=== PATIENT | male | born 1985 | race Caucasian/White ===

== ENCOUNTER 2017-08-17 14:14 | Emergency (ER) | payer BC | END 2017-08-17 14:46 | disposition left against medical advice (07) | LOC: MW.ED 14:14 | DX: Z53.21 Procedure and treatment not carried out due to patient leaving prior to being seen by health care provider (principal) ==

== ENCOUNTER 2017-08-19 00:31 | Emergency (ER) | payer BC ==
--- NOTE | 2017-08-19 00:59 | EDM.PDOC ---
ED HPI GENERAL MEDICAL PROBLEM - General Chief Complaint: General Stated Complaint: PANIC ATTACK Time Seen by Provider: 08/19/17 00:45 - History of Present Illness INITIAL COMMENTS - FREE TEXT/NARRATIVE: HISTORY AND PHYSICAL: History of present illness: The patient is a healthy 32-year-old male who presents with a history of being given a diagnosis of generalized anxiety 1-2 years ago and has had several panic attacks this week secondary to stressors at work and in his family life. The patient says that he tries to eat healthfully he works out and he is very conscious of his body and lately he has had issues dealing with these stressors which she says are in his life on a regular basis. In the past he was able to deal with them a little bit better and he is unsure why this is happening this week but he is having difficulty sleeping and feels like his thoughts and heart are racing. Currently he is feeling better and he has no feelings of depression and actually wants a bridge in order to get some rest until he can get home to [place], where he lives and where he wants to start to get some counseling. Patient denies suicidal ideation and says he wants to rest as he has to finish his job here for go home tomorrow. Patient does drink caffeinated products but not excessive amount and does not use drugs. Review of systems: As per history of present illness and below otherwise all systems reviewed and negative. Past medical history: As per history of present illness and as reviewed below otherwise noncontributory. Surgical history: As per history of present illness and as reviewed below otherwise noncontributory. Social history: No reported history of drug or alcohol abuse. Family history: As per history of present illness and as reviewed below otherwise noncontributory. Physical exam: General: Well-developed well-nourished man who is nontoxic and does exhibit some anxiety when we are talking about certain things in the room but is overall cooperative and pleasant. Vital signs have been noted by me HEENT: Atraumatic, normocephalic, negative for conjunctival pallor or scleral icterus, mucous membranes moist, throat clear, neck supple, nontender, trachea midline. Lungs: Clear to auscultation, breath sounds equal bilaterally, chest nontender. Heart: S1S2, regular rate and rhythm no overt murmurs Abdomen: Soft, nondistended, nontender. Negative for masses or hepatosplenomegaly. NABS Pelvis: Stable nontender. Genitourinary: Deferred. Rectal: Deferred. Extremities: Atraumatic, negative for cords or calf pain. Neurovascular unremarkable. Neuro: Awake, alert, oriented. Cranial nerves II through XII unremarkable. Cerebellum unremarkable. Motor and sensory unremarkable throughout. Exam nonfocal. Diagnostics: [] Therapeutics: [] I discussed with the patient length different [id number] medications he can use to help him with sleep such as melatonin and also to reduce screen time before trying to rest. I will give him a small amount of Ativan from [employer] to help bridge him until he can go and seek counseling back at home. He was offered resources here but says he is going back to [place] tomorrow where he lives and he would rather establish definitive treatment there. Advised him on reasons to return Impression: Anxiety with history of same Definitive disposition and diagnosis as appropriate pending reevaluation and review of above. - Related Data Allergies Allergy/AdvReac Type Severity Reaction Status Date / Time No Known Allergies Allergy Verified 08/19/17 00:36 Home Meds: Home Meds . [No Known Home Meds] 08/19/17 [History] Past Medical History - Past Health History Medical/Surgical History: Denies Medical/Surgical History Psychiatric History: Reports: Anxiety Social & Family History - Family History Family Medical History: Noncontributory - Tobacco Use Smoking Status *Q: Never Smoker - Caffeine Use Caffeine Use: Reports: None - Recreational Drug Use Recreational Drug Use: Yes Drug Use in Last 12 Months: Yes Recreational Drug Type: Reports: Marijuana/Hashish ED ROS GENERAL - Review of Systems Review Of Systems: ROS reveals no pertinent complaints other than HPI. ED EXAM, GENERAL - Physical Exam Exam: See Below (See dictation) Course - Vital Signs Last Recorded V/S: Last Vital Signs Temp 36.4 C 08/19/17 00:31 Pulse 94 08/19/17 00:31 Resp 18 08/19/17 00:31 BP 147/86 H 08/19/17 00:31 Pulse Ox 100 08/19/17 00:31 Departure - Departure Time of Disposition: 00:58 Disposition: Home, Self-Care 01 Condition: Good Clinical Impression: Anxiety - Discharge Information Referrals: PCP,None [Primary Care Provider] - Additional Instructions: The following information is given to patients seen in the emergency department who are being discharged to home. This information is to outline your options for follow-up care. We provide all patients seen in our emergency department with a follow-up referral. The need for follow-up, as well as the timing and circumstances, are variable depending upon the specifics of your emergency department visit. If you don't have a primary care physician on staff, we will provide you with a referral. We always advise you to contact your personal physician following an emergency department visit to inform them of the circumstance of the visit and for follow-up with them and/or the need for any referrals to a consulting specialist. The emergency department will also refer you to a specialist when appropriate. This referral assures that you have the opportunity for followup care with a specialist. All of these measure are taken in an effort to provide you with optimal care, which includes your followup. Under all circumstances we always encourage you to contact your private physician who remains a resource for coordinating your care. When calling for followup care, please make the office aware that this follow-up is from your recent emergency room visit. If for any reason you are refused follow-up, please contact the [facility] emergency department at and ask to speak to the emergency department charge nurse. [facility] Primary care- Internal Medicine and Family [address] [address] Please try to reduce caffeinated products in her diet and try to reduce screen time as we discussed before trying to rest and sleep. Please use over-the- counter melatonin as we discussed to assist with sleep. Please take the Ativan you have prescribed the [employer] as needed but only take that medication when you are home and not driving a vehicle or at work. Please call and connect with a counselor once to get home to [place] tomorrow for definitive care and treatment and if you do stay locally please connect with one of our clinic provider is using resources given to above. Return to ER as needed and as discussed
== END 2017-08-19 01:13 | disposition home or self-care (01) ==
LOC: MW.ED 00:31
DX: F41.9 Anxiety disorder, unspecified (principal)
CPT/HCPCS: 99282